=== PATIENT | female | born 2000 | race Caucasian/White ===

== ENCOUNTER 2023-01-30 19:31 | Emergency (ER) | payer BC ==
[2023-01-30 19:51] VITALS: BP 112/80; PULSE 85; RESP 18; TEMP 98.2; BMI 24.1
[2023-01-30] MEDS ORDERED: KETOROLAC TROMETHAMINE 30 MG/1 ML VIAL ONE (20:55)
[2023-01-30] MEDS ORDERED: KETOROLAC TROMETHAMINE 30 MG/1 ML VIAL IM ONE (21:08)
== END 2023-01-30 22:28 | disposition home or self-care (01) ==
LOC: JERFT 19:31
PROC: 3E0333Z Introduction of Anti-inflammatory into Peripheral Vein, Percutaneous Approach (ICD-10-PCS; principal; 2023-01-30)
DX: M54.6 Pain in thoracic spine (principal); M41.9 Scoliosis, unspecified; M79.10 Myalgia, unspecified site
CPT/HCPCS: 72070-TC-FY; 99284-25